=== PATIENT | male | born 1975 | race Caucasian/White ===

== ENCOUNTER 2017-08-15 15:04 | Emergency (ER) | payer OTHER ==
[~2017-08-15] VITALS: Ht 172.7 cm; Wt 95.3 kg
[2017-08-15 15:08] VITALS: BP 128/72
[2017-08-15] MEDS ORDERED: ATOR20TA PO (15:17)
[2017-08-15] MEDS ORDERED: CARB200T1 PO (15:17)
[2017-08-15] MEDS ORDERED: LEVE1000 PO (15:17)
[2017-08-15] MEDS ORDERED: TRAZ-286 PO (15:17)
[2017-08-15] MEDS ORDERED: METF500T PO (15:17)
[2017-08-15] MEDS ORDERED: LISI-420 PO (15:17)
[2017-08-15] MEDS ORDERED: levETIRAcetam 500 MG TAB PO ONE (15:45)
[2017-08-15] MEDS ORDERED: carBAMazepine 200 MG TAB PO ONE (15:45)
[2017-08-15 17:03] VITALS: BP 108/75
== END 2017-08-15 17:03 | disposition home or self-care (01) ==
LOC: MED 15:04
DX: G40.909 Epilepsy, unspecified, not intractable, without status epilepticus (principal); E11.9 Type 2 diabetes mellitus without complications; I10 Essential (primary) hypertension
CPT/HCPCS: 99283